=== PATIENT | female | born 1945 | race Caucasian/White ===

== ENCOUNTER 2024-08-08 09:22 | Observation (INO) | payer MEDICARE, OTHER, SELFPAY ==
[2024-08-08] VITALS (10 sets, daily range): BP systolic 111–154; BP diastolic 63–73; PULSE 62–79; RESP 16–22; TEMP 36.3–36.8; O2SAT 94–98; BMI 30.1
--- NOTE | ~2024-08-08 | XR_ITS ---
Clinical Indication: Weakness PA and lateral views of the chest: Comparison: 07/30/2024 Findings: The lungs are clear, without evidence of focal consolidation or pleural effusion. Cardiome diastinal silhouette is within normal limits. Bones and soft tissues are unremarkable. Impression: Normal chest. Reviewed, dictated and finalized at location . Impression: Normal chest.
--- NOTE | ~2024-08-08 | NM_ITS ---
EXAMINATION: NM sam stress w perfusion DATE: 08/09/2024 11:13 INDICATION: Chest pain TECHNIQUE: Rest images were obtained following intravenous administration of 12.2 mCi Tc99m tetrofosm in (Myoview). The patient was infused intravenously with Lexiscan (Regadenoson). Then, 33.3 mCi Tc99m tetrofosmin (Myoview) was administered intravenously, and stress images were obtained. Data was stephy nstructed into short axis and horizontal and vertical long axis SPECT images. Gated SPECT images were also obtained. COMPARISON: None. FINDINGS: There is no definite reversible or fixed perfusion abnormality to suggest ischemia or infar ction. There is normal left ventricular chamber size, wall motion and ejection fraction. Left ventr icular ejection fraction measures 67%. IMPRESSION: 1. Normal myocardial perfusion at rest and during stress. 2. Left ventricular ejection fraction measuring 67%. Reviewed, dictated and finalized at location A.
--- NOTE | ~2024-08-08 | CT_ITS ---
Clinical Indication: Chest pain, back pain, abdominal pain CT Scan of the Chest, Abdomen, and Pelvis with Contrast: Technique: Contiguous sections were acquired throughout the chest, abdomen, and pelvis after intraven ous administration of 100 cc of Omnipaque 350. Dose reduction technique was used on this scan by uti lizing automated exposure control and iterative reconstruction technique. The dose-length product (DL P) was 735.07 mGy-cm. Comparison: 07/30/2024 Findings: There is no evidence of any significant mediastinal, hilar or axillary lymphadenopathy. The mediastin al soft tissues appear normal. No aortic aneurysm or dissection. No pulmonary embolus seen. There is no evidence of pleural or pericardial effusion. The lungs are clear. No pulmonary nodules or infiltrates are noted. The liver, spleen, pancreas, gallbladder, adrenals and kidneys are within normal limits. There are at herosclerotic calcifications of the aorta. No aortic aneurysm or dissection. No lymphadenopathy. No bowel obstruction or bowel wall thickening. There is no evidence to suggest acute appendicitis. Urinary bladder is unremarkable. No pelvic mass seen. No ascites. Impression: No significant abnormalities seen. Reviewed, dictated and finalized at [facility]. Impression: No significant abnormalities seen.
--- NOTE | 2024-08-08 09:30 | ECG_ITS ---
Test Date: 2024-08-08 09:29:58 Measurements Intervals [place] Rate: 76 P: 14 MO: 150 QRS: -3 QRSD: 89 T: 33 QT: 392 QTc: 443 Interpretive Statements SINUS RHYTHM VOLTAGE CRITERIA FOR LVH BORDERLINE ECG Compared to ECG 07/30/2024 02:32:04 No significant changes Electronically Signed On 08-08-2024 12:34:17 CDT by Lasha Dumont D.O.
[2024-08-08 09:44] LABS: Basophils Percent Auto 0.1 % (0.2-1.2); Eosinophils Absolute Auto 0.1 K/mm3 (0-0.3); Eosinophils Percent Auto 1.9 % (0-4.4); Hematocrit 41.2 % (37.0-47.0); Hemoglobin 13.4 g/dL (12.0-15.0); Immature Granulocyte Absolute 0.03 K/mm3 (0.00-0.031); Immature Granulocyte Percent A 0.4 % (0-0.5); Lymphocytes Absolute Auto 2.01 K/mm3 (0.9-3.2); Lymphocytes Percent Auto 29.8 % (18.3-44.2); Mean Corpuscular HGB Conc 32.5 g/dl (32-36); Mean Corpuscular Hemoglobin 31.7 pg (26-34); Mean Corpuscular Volume 97.4 fl (80-100); Mean Platelet Volume 8.9 fl (7.4-10.4); Monocytes Absolute Auto 0.7 K/mm3 (0.1-0.6); Monocytes Percent Auto 10.5 % (2.6-8.5); Neutrophils Absolute Auto 3.9 K/mm3 (1.3-6.7); Neutrophils Percent Auto 57.3 % (45.5-73.1); Platelet Count Result 237 k/mm3 (150-375); Red Blood Count 4.23 M/mm3 (4.2-5.4); Red Cell Distribution Width 12.5 % (11.5-14.5); White Blood Count 6.8 K/mm3 (4.5-10.0)
[2024-08-08 09:57] LABS: Alanine Aminotransferase 26 U/L (6-35); Albumin Level 4.4 g/dL (3.5-5.1); Alkaline Phosphatase 46 U/L (38-126); Anion Gap 11 mmol/L (4-12); Aspartate Amino Transferase 27 U/L (14-36); Bilirubin,Total 0.4 mg/dL (0.2-1.3); Blood Urea Nitrogen 13 mg/dL (7-17); Calcium 9.6 mg/dL (8.4-10.2); Carbon Dioxide 23 mmol/L (22-30); Chloride 106 mmol/L (98-107); Estimated CRCL calculation 72 ml/min; Estimated Glomerular Filt Rate > 60; Glucose 120 mg/dL (65-110); Lipase 128 U/L (23-300); Potassium 3.9 mmol/L (3.4-5.0); Prothrombin Time 13.3 Seconds (11.1-14.7); Sodium 140 mmol/L (137-145); Total Protein 7.2 g/dL (6.3-8.2)
[2024-08-08 09:58] LABS: Partial Thromboplastin Time 24.4 Seconds (22.3-36.8)
--- NOTE | 2024-08-08 10:05 | ED_ITS ---
HPI - Back Pain/Injury General Chief Complaint: Back Pain/Injury Stated Complaint: back Time Seen by Provider: 08/08/24 10:03 Source: patient and EMS Mode of arrival: EMS History of Present Illness HPI Narrative: 78 years old white female, history of dementia, currently oriented to her name only complaining of chest pain, med back pain, left lower quadrant pain noticed 2 hours prior to arrival. Her son is a physician at the bedside.. Patient denies any fever, chills, nausea, vomiting, shortness of breath or recent trauma. History of diabetes hyperlipidemia deep vein thrombosis and acid reflux. Patient on aspirin Related Data Allergies Allergy/AdvReac Type Severity Reaction Status Date / Time No Known Allergies Allergy Verified 07/30/24 02:38 Review of Systems 2 Review of Systems: ROS unobtainable: Yes unobtainable due to mental status Exam 2 Narrative: General appearance: Well-developed, well-nourished Skin: Normal color Head: Normocephalic, nontraumatic Eyes: Clear conjunctiva ENT: Oropharynx normal, ears normal, nose normal Neck: Supple, nontender Chest and respiratory: Airway patent, no respiratory distress, no accessory muscle use Heart: Regular rate/rhythm Abdomen: Soft, left lower quadrant tenderness, no organomegaly, quiet bowel sounds Vascular: Normal peripheral pulses, normal capillary refill. Musculoskeletal: Moderate tenderness thoracic spine with palpation, no bruises, no swelling, no rash Neurologic: Alert and oriented ?3, [employer] is normal as tested, no gross motor deficit Course Vital Signs Vital signs: Vital Signs Temperature 36.5 C 08/08/24 09:24 Pulse Rate 79 08/08/24 09:24 Respiratory Rate 22 H 08/08/24 09:24 Blood Pressure 111/63 08/08/24 09:24 Pulse Oximetry 97 08/08/24 09:24 Oxygen Delivery Room Air 08/08/24 09:24 Temperature 36.5 C 08/08/24 09:24 Pulse Rate 76 08/08/24 10:23 Respiratory Rate 20 08/08/24 10:23 Blood Pressure 117/72 08/08/24 10:23 Pulse Oximetry 94 08/08/24 10:23 Oxygen Delivery Room Air 08/08/24 09:24 MDM - Back Pain/Injury MDM Narrative Medical decision making narrative: Patient came with chest pain and mid upper back pain Vital signs are stable Physical examination showing tenderness mid thoracic spine and left lower quadrant. Differential diagnosis include coronary artery disease, pulmonary embolism, stress related symptoms, musculoskeletal, diverticulitis, urinary tract infection, constipation, less likely aortic dissection/aneurysm. Blood workup today includes CBC, CMP, troponin, lipase, PT PTT showed no significant abnormality Chest x-ray showed no acute abnormality EKG showed normal sinus at 76 beats per minute, no acute abnormality CTA chest, abdomen and pelvis showed no significant abnormality Admit to hospitalist for chest pain. Differential Diagnosis Differential diagnosis: Likely other (As above) Medical Records Attestation: I reviewed the patient's medical records. Lab Data Attestation: I reviewed the patient's lab results. 08/08/24 09:37 08/08/24 09:37 Labs: Lab Results 08/08/24 Range/Units 09:37 WBC 6.8 (4.5-10.0) K/mm3 RBC 4.23 (4.2-5.4) M/mm3 Hgb 13.4 (12.0-15.0) g/dL Hct 41.2 (37.0-47.0) % MCV 97.4 (80-100) fl MCH 31.7 (26-34) pg MCHC 32.5 (32-36) g/dl RDW 12.5 (11.5-14.5) % Plt Count 237 (150-375) k/mm3 MPV 8.9 (7.4-10.4) fl Immature Gran % (Auto) 0.4 (0-0.5) % Neut % (Auto) 57.3 (45.5-73.1) % Lymph % (Auto) 29.8 (18.3-44.2) % Hernando % (Auto) 10.5 H (2.6-8.5) % Eos % (Auto) 1.9 (0-4.4) % Baso % (Auto) 0.1 L (0.2-1.2) % Lymph # (Auto) 2.01 (0.9-3.2) K/mm3 Hernando # (Auto) 0.7 H (0.1-0.6) K/mm3 Eos # (Auto) 0.1 (0-0.3) K/mm3 Baso # (Auto) 0.0 (0.0-0.1) K/mm3 Abs Immat Gran (auto) 0.03 (0.00-0.031) K/mm3 Absolute Neuts (auto) 3.9 (1.3-6.7) K/mm3 Absolute Nucleated RBC 0.000 (0.0-0.012) K/mm3 Nucleated RBC % 0.0 (0.0-0.2) % PT 13.3 (11.1-14.7) Seconds INR 1.0 APTT 24.4 (22.3-36.8) Seconds Sodium 140 (137-145) mmol/L Potassium 3.9 (3.4-5.0) mmol/L Chloride 106 (98-107) mmol/L Carbon Dioxide 23 (22-30) mmol/L Anion Gap 11 (4-12) mmol/L BUN 13 (7-17) mg/dL Creatinine 0.56 L (0.7-1.0) mg/dL Estim Creat Clear Calc 72 ml/min Estimated GFR > 60 (59 - ) Glucose 120 H (65-110) mg/dL Calcium 9.6 (8.4-10.2) mg/dL Total Bilirubin 0.4 (0.2-1.3) mg/dL AST 27 (14-36) U/L ALT 26 (6-35) U/L Alkaline Phosphatase 46 (38-126) U/L Troponin I < 0.012 (0.000-0.034) ng/mL Total Protein 7.2 (6.3-8.2) g/dL Albumin 4.4 (3.5-5.1) g/dL Lipase 128 (23-300) U/L Imaging Data Radiologist's impression: Impressions Chest X-Ray 08/08/24 09:55 Impression: Normal chest. Chest/Abdomen/Pelvis CTA 08/08/24 11:30 Impression: No significant abnormalities seen. Critical Care Time Critical Care Time Critical Care Time: No Discharge Plan Discharge Clinical Impression: Chest pain, Back pain Patient Disposition: Still a Patient Condition: Stable Additional Instructions: Admit to hospitalist Patient Language: Vincentian Follow-up/Referrals: Esther Jones MD [Primary Care Provider] - Quality HEART score for chest pain patients History: moderately suspicious ECG: non specific repolarization disturbance/LBTB/PM Age: > or = to 65 years Risk factors: > or = to 3 risk factors of atherosclerotic disease Troponin: < or = to 1x normal limit Heart score: 6
[2024-08-08 10:08] LABS: Troponin I < 0.012 ng/mL (0.000-0.034)
--- NOTE | 2024-08-08 12:20 | ECG_ITS ---
Test Date: 2024-08-08 13:04:16 Measurements Intervals [place] Rate: 70 P: 44 MI: 181 QRS: -10 QRSD: 84 T: 24 QT: 403 QTc: 437 Interpretive Statements SINUS RHYTHM LEFT VENTRICULAR HYPERTROPHY MINIMAL Q WAVES- HIGH LATERAL LEADS BASELINE ARTIFACT- I, II, AVR BORDERLINE ECG Compared to ECG 08/08/2024 09:29:58 No significant changes Electronically Signed On 08-08-2024 15:38:31 CDT by Lasha Dumont D.O.
[2024-08-08] MEDS: ASPIRIN 81 MG CHEWABLE TABLET 324 MG PO (12:35)
[2024-08-08 12:54] LABS: Troponin I < 0.012 ng/mL (0.000-0.034)
--- NOTE | 2024-08-08 14:59 | PM.IMHP ---
H&P: HPI History of Present Illness Date/Time: 08/08/24 14:59 Chief Complaint: Chest pain, back pain and abdominal pain Narrative: ER-HPI Narrative: 78 years old white female, history of dementia, currently oriented to her name only complaining of chest pain, med back pain, left lower quadrant pain noticed 2 hours prior to arrival. Her son is a physician at the bedside.. Patient denies any fever, chills, nausea, vomiting, shortness of breath or recent trauma. History of diabetes hyperlipidemia deep vein thrombosis and acid reflux. Patient on aspirin 78 y/o female a resident of [place] with history of dementia and poor historian was sent to ER for further evaluation of her chest, back and abdominal pain, CT scan of chest, abdomen, and pelvics with contrast is essentially normal without any acut finding. her 2 sets of cardiac enzymes are normal as well her EKG without any acute changes, Patient had a similar presentation recently on 07/30/24 and her work up was normal and patient was discharged back to the OR, today I spoke with her son who is a ER physician and discuss case, plan is to apply Lidoderm patches to help her with back pain, and to further evaluate her chest pain, will do sam scan to r/o any ACS and cardiac echo to check for any cardiac structural abnormality. Review of Systems Review of Systems: ROS unobtainable: Yes unobtainable due to mental status PMFSH Social History Social History Smoking status: Never smoker Meds Home Medications and Allergies Allergies Allergy/AdvReac Type Severity Reaction Status Date / Time No Known Allergies Allergy Verified 07/30/24 02:38 Vital Signs Vital Signs - 24 hr 08/08/24 09:24 08/08/24 10:23 08/08/24 12:25 Temperature 36.5 C Pulse Rate 79 76 63 Respiratory Rate 22 H 20 18 Blood Pressure 111/63 117/72 123/63 Pulse Oximetry 97 94 96 Oxygen Delivery Room Air 08/08/24 14:06 Temperature 36.5 C Pulse Rate 69 Respiratory Rate 20 Blood Pressure 154/67 H Pulse Oximetry 98 Oxygen Delivery Exam Narrative: Patient is comfortable, NAD HEENT: eyes are clear and none icteric LUNGS:CTA HEART: RR S1S2 ABD: BS+, Soft and diffusely tender Lower extremities: no edema SKIN: nonjaundiced Neuro: grossly intact. H&P: Results Labs Labs: Short CBC 08/08/24 Range/Units 09:37 WBC 6.8 (4.5-10.0) K/mm3 Hgb 13.4 (12.0-15.0) g/dL Hct 41.2 (37.0-47.0) % Plt Count 237 (150-375) k/mm3 BMP 08/08/24 09:37 Sodium 140 Potassium 3.9 Chloride 106 Carbon Dioxide 23 BUN 13 Creatinine 0.56 L Glucose 120 H Calcium 9.6 Cardiac Enzymes 08/08/24 08/08/24 Range/Units 09:37 12:27 Troponin I < 0.012 < 0.012 (0.000-0.034) ng/mL Liver Function 08/08/24 Range/Units 09:37 Total Bilirubin 0.4 (0.2-1.3) mg/dL AST 27 (14-36) U/L ALT 26 (6-35) U/L Alkaline Phosphatase 46 (38-126) U/L Albumin 4.4 (3.5-5.1) g/dL Assessment and Plan Assessment and plan (1) Chest pain: Code(s): R07.9 - Chest pain, unspecified Status: Acute (2) Back pain: Code(s): M54.9 - Dorsalgia, unspecified Status: Acute (3) Abdominal pain: Code(s): R10.9 - Unspecified abdominal pain Status: Acute Plan 78 y/o female a resident of [place] with history of dementia and poor historian was sent to ER for further evaluation of her chest, back and abdominal pain, CT scan of chest, abdomen, and pelvics with contrast is essentially normal without any acut finding. her 2 sets of cardiac enzymes are normal as well her EKG without any acute changes, Patient had a similar presentation recently on 07/30/24 and her work up was normal and patient was discharged back to the OR, today I spoke with her son who is a ER physician and discuss case, plan is to apply Lidoderm patches to help her with back pain, and to further evaluate her chest pain, will do sam scan to r/o any ACS and cardiac echo to check for any cardiac structural abnormality. Quality VTE Prophylaxis VTE prophylaxis: mechanical ordered Hospitalist MIPS Advance Care Plan I have confirmed that the patient's Advanced Care Plan is present, code status is documented, or surrogate decision maker is listed in patient medical record.: Yes Medication Reconciliation The patient is not eligible for med reconciliation; the patient is in a emergent medical situation where delaying treatment would jeopardize the patients health.: Yes
[2024-08-08 15:57] LABS: Troponin I < 0.012 ng/mL (0.000-0.034)
[2024-08-08] MEDS: DONEPEZIL HCL 5 MG TABLET PO (23:10)
[2024-08-08] MEDS: traZODone HCL 25 MG TABLET PO (23:10)
[2024-08-08] MEDS: ATORVASTATIN 20 MG TABLET PO (23:11)
[2024-08-08] MEDS: DORZOLAMIDE/TIMOLOL OPHTH SOL 10 ML BOTTLE 1 DROP EACH EYE (23:12)
[2024-08-08] MEDS: LATANOPROST 0.005% OP SOLN 2.5 ML BTL 1 DROP EACH EYE (23:12)
[2024-08-08 23:40] LABS: Glucose Point of Care 113 mg/dl (65-105)
[2024-08-09] VITALS (10 sets, daily range): BP systolic 123–153; BP diastolic 62–73; PULSE 60–86; RESP 16–18; TEMP 36.6–36.8; O2SAT 94–100
--- NOTE | 2024-08-09 | ECHO_ITS ---
Patient Info Name: Gladys Das Age: 78 years : 1945 Gender: Female Ht: 64 in Wt: 175 lbs BSA: 1.92 m2 HR: 76 bpm BP: 138 / 62 mmHg Technical Quality: Good Exam Date: 08/09/2024 10:51 AM Patient Status: I Admit Date: 08/08/2024 Exam Type: CA echo doppler color flow Complete two-dimensional, color flow and Doppler transthoracic echocardiogram is performed. Staff Referring Physician: Lida Martinez MD Cable Worker Helper: Mari Weiss Attending Provider: Lida Martinez MD Summary 1. Complete two-dimensional, color flow and Doppler transthoracic echocardiogram is performed. 2. Left ventricular chamber dimension is normal. 3. Left ventricular systolic function is normal, estimated at 60-65. 4. The left ventricular diastolic function is grade I diastolic dysfunction. 5. E/e' 8 is minimally elevated. 6. There is mild aortic valve sclerosis. 7. There is mild aortic valve regurgitation. 8. The mitral valve has a moderately calcified annulus. 9. There is mild mitral valve regurgitation. 10. There is mild to moderate tricuspid valve regurgitation. 11. Mild pulmonary hypertension, estimated pulmonary arterial systolic pressure is 42 mmHg. Left Ventricle E/e' 8 is minimally elevated. Left ventricular chamber dimension is normal. Left ventricular systolic function is normal, estimated at 60-65. The left ventricular diastolic function is grade I diastolic dysfunction. Right Ventricle Right ventricular chamber dimension is normal. Right ventricular systolic function is normal and with normal TAPSE 2.3 cm. Left Atria Left atrial chamber dimension is normal. Right Atria Right atrial chamber dimension is normal. Aortic Valve The aortic valve is trileaflet. There is mild aortic valve sclerosis. There is no aortic valve stenosis. There is mild aortic valve regurgitation. Pulmonic Valve There is no pulmonic regurgitation. Mitral Valve The mitral valve has a moderately calcified annulus. There is no mitral valve stenosis. There is mild mitral valve regurgitation. Tricuspid Valve There is mild to moderate tricuspid valve regurgitation. Mild pulmonary hypertension, estimated pulmonary arterial systolic pressure is 42 mmHg. Pericardium/Pleural There is no pericardial effusion. Inferior Vena Cava Normal inferior vena cava with >50% collapse upon inspiration consistent with normal right atrial pressure, 5 mmHg. Aorta The aortic root size at the sinus of Valsalva is normal. Left Ventricular Outflow Tract Name Value Normal LVOT 2D LVOT Diameter 1.9 cm LVOT Doppler LVOT Peak Velocity 82 cm/s LVOT Peak Gradient 3 mmHg LVOT Mean Gradient 1 mmHg LVOT VTI 19 cm LVOT VTI/AV VTI Ratio 0.8 LVOT Stroke Volume 54 ml LVOT CO 3.0 l/min LVOT CI 1.6 l/min/m2 Pulmonic Valve Name Value Normal PV Doppler PV Peak Velocity 84 cm/s PV Peak Gradient 3 mmHg PV Regurgitation Doppler MD Peak End Diastolic Velocity 87 cm/s Mitral Valve Name Value Normal MV Diastolic Function MV E Peak Velocity 68 cm/s MV A Peak Velocity 85 cm/s MV E/A 0.8 MV Decel Time (PW) 221 ms MV Annular TDI MV E/e' (Septal) 7.9 MV E/e' (Lateral) 10.2 MV E/e' (Average) 9.0 Tricuspid Valve Name Value Normal TV Regurgitation Doppler TR Peak Velocity 304 cm/s TR Peak Gradient 26 mmHg Estimated PAP/RSVP RA Pressure 5 mmHg <=5 PA Systolic Pressure 42 mmHg <36 RV Systolic Pressure 42 mmHg <36 TV Annular TDI TV Lateral Diane s' Velocity 9.0 cm/s >=9.5 Aortic Valve Name Value Normal AV Doppler AV Peak Velocity 105 cm/s AV Peak Gradient 4 mmHg AV Mean Gradient 2 mmHg AV VTI 24 cm AV Area (Cont Eq VTI) 2.2 cm2 >=3.0 AV Area (Cont Eq Albert) 2.2 cm2 AV DI (Albert) 0.79 AV Regurgitation 2D LVOT Area 2.8 cm2 Ventricles Name Value Normal LV Dimensions 2D/MM IVS Diastolic Thickness (2D) 0.9 cm 0.6-1.0 LVID Diastole (2D) 4.3 cm 3.8-5.2 LVIW Diastolic Thickness (2D) 0.9 cm 0.6-0.9 LVID Systole (2D) 3.0 cm 2.2-3.5 LVOT Diameter 1.9 cm LV Mass (2D Cubed) 128.59 g 67.00-162.00 LV Mass Index (2D Cubed) 67 g/m2 43-95 Relative Wall Thickness (2D) 0.41 <=0.42 LV Fractional Shortening/Ejection Fraction 2D/MM LV Fractional Shortening (2D) 30 % 27-45 LV EF (2D Teichholz) 58 % LV Diastolic Volume (4C MOD) 64 ml LV EF (4C MOD) 62 % LV Diastolic Volume (2C MOD) 56 ml LV EF (2C MOD) 57 % LV Diastolic Volume (BP MOD) 60 ml 46-106 LV Diastolic Volume Index (BP MOD) 31 ml/m2 29-61 LV Systolic Volume (BP MOD) 26 ml 14-42 LV Systolic Volume Index (BP MOD) 13 ml/m2 8-24 LV EF (BP MOD) 57 % 54-74 LV Diastolic Length (4C) 6.8 cm LV Systolic Length (4C) 5.2 cm LV Stroke Volume (4C MOD) 40 ml Atria Name Value Normal LA Dimensions LA Volume (4C A-L) 34 ml LA Volume (BP A-L) 40 ml RA Dimensions RA Systolic Major [place] Length (4C) 4.0 cm 2.2-2.8 RA Area (4C) 12.9 cm2 <=18.0 Report Signatures
--- NOTE | 2024-08-09 | EST_ITS ---
Patient Info Name: Gladys Das Age: 78 years : 1945 Gender: Female Ht: 64 in Wt: 175 lbs BSA: 1.92 m2 HR: 61 bpm BP: 128 / 77 mmHg Exam Date: 08/09/2024 6:20 AM Patient Status: I Admit Date: 08/08/2024 Exam Type: CA stress sam w NM A regadenoson stress test was performed. Staff Referring Physician: Lida Martinez MD Attending Provider: Lida Martinez MD Exercise Technologist: Carito Arciniega Exercise Physician: Lasha Dumont DO Summary 1. 1. Negative lexiscan stress test for ischemic ST changes by ECG criteria. 2. 2. Stable hemodynamics throughout the test. 3. 3. Nuclear scan to follow and will be reported separately. Please correlate with it. 4. 4. Patient informed of the above results. Protocol: Lexiscan Stress ECG Details Stage: REST Duration (min): 1 min : 29 sec HR (bpm): 61 SBP (mmHg): 128 DBP (mmHg): 77 Stage: REST Duration (min): 8 min : 18 sec HR (bpm): 64 SBP (mmHg): 128 DBP (mmHg): 77 Stage: STAGE 1 Duration (min): 1 min : 0 sec HR (bpm): 80 SBP (mmHg): 129 DBP (mmHg): 87 Stage: RECOVERY Duration (min): 1 min : 0 sec HR (bpm): 106 SBP (mmHg): 129 DBP (mmHg): 87 Stage: RECOVERY Duration (min): 2 min : 0 sec HR (bpm): 100 SBP (mmHg): 129 DBP (mmHg): 87 Stage: RECOVERY Duration (min): 3 min : 0 sec HR (bpm): 97 SBP (mmHg): 151 DBP (mmHg): 75 Stage: RECOVERY Duration (min): 3 min : 15 sec HR (bpm): 99 SBP (mmHg): 151 DBP (mmHg): 75 Rest HR: 64 bpm Peak HR: 107 bpm Rest Sys BP: 128 mmHg Peak Sys BP: 151 mmHg Max Pred HR: 141 bpm % Max Pred HR: 76 % Target HR: 120 bpm Max RPP: 16,157 bpm*mmHg Termination Reason: Completed protocol Cardiac Symptoms: Stomach discomfort Total Time: 1 min : 0 sec Rest Polo BP: 77 mmHg Peak [place] BP: 75 mmHg Total Dose: 0.4 mg Resting ECG Sinus rhythm, early precordial R/S transition. Stress ECG No ST changes. Arrhythmias None. Report Signatures
[2024-08-09 04:46] LABS: Chloride 105 mmol/L (98-107)
[2024-08-09 04:47] LABS: Anion Gap 8 mmol/L (4-12); Blood Urea Nitrogen 9 mg/dL (7-17); Calcium 9.1 mg/dL (8.4-10.2); Carbon Dioxide 27 mmol/L (22-30); Estimated CRCL calculation 68 ml/min; Estimated Glomerular Filt Rate > 60; Glucose 116 mg/dL (65-110); Potassium 3.3 mmol/L (3.4-5.0); Sodium 140 mmol/L (137-145)
[2024-08-09 09:22] LABS: Glucose Point of Care 105 mg/dl (65-105)
[2024-08-09] MEDS: NIFEdipine 30 MG TAB.ER.24 PO (10:24)
[2024-08-09] MEDS: ASPIRIN 81 MG CHEWABLE TABLET PO (10:24)
[2024-08-09] MEDS: PANTOPRAZOLE 40 MG TABLET PO (10:24)
[2024-08-09] MEDS: FERROUS SULFATE 325 MG TABLET DR PO (10:24)
[2024-08-09] MEDS: DORZOLAMIDE/TIMOLOL OPHTH SOL 10 ML BOTTLE 1 DROP EACH EYE (10:25)
[2024-08-09 11:12] LABS: Hematocrit 37.9 % (37.0-47.0); Hemoglobin 12.3 g/dL (12.0-15.0); Mean Corpuscular HGB Conc 32.5 g/dl (32-36); Mean Corpuscular Hemoglobin 32.2 pg (26-34); Mean Corpuscular Volume 99.2 fl (80-100); Mean Platelet Volume 9.5 fl (7.4-10.4); Platelet Count Result 243 k/mm3 (150-375); Red Blood Count 3.82 M/mm3 (4.2-5.4); Red Cell Distribution Width 12.8 % (11.5-14.5); White Blood Count 7.2 K/mm3 (4.5-10.0)
[2024-08-09 11:12] LABS: Glucose Point of Care 135 mg/dl (65-105)
[2024-08-09] MEDS: POTASSIUM CHLORIDE 20 MEQ PACKET (FOR LIQUID) 40 MEQ PO (11:56)
--- NOTE | 2024-08-09 15:37 | P.DS_ITS ---
DS: Admitting Diagnosis Discharge Date 08/09/24 Admitting Diagnosis Chest pain, back pain and abdominal pain DS: Discharge Diagnosis Discharge Diagnosis (1) Chest pain: Code(s): R07.9 - Chest pain, unspecified Status: Acute (2) Back pain: Code(s): M54.9 - Dorsalgia, unspecified Status: Acute (3) Abdominal pain: Code(s): R10.9 - Unspecified abdominal pain Status: Acute Plan 78 y/o female a resident of [facility] with history of dementia and poor historian was sent to ER for further evaluation of her chest, back and abdominal pain, CT scan of chest, abdomen, and pelvics with contrast is essentially normal without any acut finding. her 2 sets of cardiac enzymes are normal as well her EKG without any acute changes, Patient had a similar presentation recently on 07/30/24 and her work up was normal and patient was discharged back to the [facility], today I spoke with her son who is a ER physician and discuss case, plan is to apply Lidoderm patches to help her with back pain, and to further evaluate her chest pain, will do sam scan to r/o any ACS and cardiac echo to check for any cardiac structural abnormality. DS: Summary Hospital Course Hospital Course: 78 y/o female a resident of [facility] with history of dementia and poor historian was sent to ER for further evaluation of her chest, back and abdominal pain, CT scan of chest, abdomen, and pelvics with contrast is essentially normal without any acut finding. her 2 sets of cardiac enzymes are normal as well her EKG without any acute changes, Patient had a similar presentation recently on 07/30/24 and her work up was normal and patient was discharged back to the [facility], today I spoke with her son who is a ER physician and discuss case, plan is to apply Lidoderm patches to help her with back pain, and to further evaluate her chest pain, will do sam scan to r/o any ACS and cardiac echo to check for any cardiac structural abnormality. To further evaluate patient chest pain, patient had NM stress test which was normal without any ischemia and had cardiac echo which showed normal LV function, patient is clinically stable, will discharge patient today. Time Spent with Patient Time attestation: Total time spent providing and/or coordinating discharge services: Exam Narrative: Patient is comfortable, NAD HEENT: eyes are clear and none icteric LUNGS:CTA HEART: RR S1S2 ABD: BS+, Soft and diffusely tender Lower extremities: no edema SKIN: nonjaundiced Neuro: grossly intact. DS: Data Data Completed and Pending Labs on day of discharge: Labs from last 24 hours 08/09/24 08/09/24 08/09/24 11:00 07:40 03:58 WBC 7.2 RBC 3.82 L Hgb 12.3 Hct 37.9 MCV 99.2 MCH 32.2 MCHC 32.5 RDW 12.8 Plt Count 243 MPV 9.5 Sodium 140 Potassium 3.3 L Chloride 105 Carbon Dioxide 27 Anion Gap 8 BUN 9 Creatinine 0.58 L Estim Creat Clear Calc 68 Estimated GFR > 60 Glucose 116 H POC Capillary Glucose 135 H 105 Calcium 9.1 Troponin I 08/08/24 08/08/24 23:20 15:31 WBC RBC Hgb Hct MCV MCH MCHC RDW Plt Count MPV Sodium Potassium Chloride Carbon Dioxide Anion Gap BUN Creatinine Estim Creat Clear Calc Estimated GFR Glucose POC Capillary Glucose 113 H Calcium Troponin I < 0.012 Discharge Plan Discharge Attending physician on discharge: Lida Martinez Consulting providers: Lasha Dumont; Gavin Rico; Ji Ocampo Discharging Clinician: Lida Martinez Patient Disposition: [facility] Nursing Home/Asst Living Activity: as tolerated Diet: heart healthy Discharge Instructions: patient to follow up with her primary care provider as soon as possible. Patient Instructions: Chest Pain (DC) Patient Language: Swedish Stand Alone Forms: General Discharge Information Follow-up/Referrals: Esther Jones MD [Primary Care Provider] - Discharge Medications: Continued atorvastatin 20 mg tablet 20 mg PO QHS donepezil 5 mg tablet 5 mg PO QHS ergocalciferol (vitamin D2) 1,250 mcg (50,000 unit) capsule 1,250 mcg PO WEEKLY ibuprofen 600 mg tablet 600 mg PO TID PRN (Reason: pain) insulin glargine [Lantus U-100 Insulin] 100 unit/mL solution 17 unit SUBCUT QPM metformin 500 mg tablet extended release 24 hr 500 mg PO BID nifedipine 30 mg tablet extended release 24hr 30 mg PO DAILY pantoprazole 40 mg tablet,delayed release (DR/EC) 40 mg PO DAILY trazodone 50 mg tablet 25 mg PO QHS acetaminophen 500 mg capsule 1,000 mg PO Q6H PRN (Reason: pain) dorzolamide-timolol 22.3-6.8 mg/mL drops 1 drp EACH EYE BID aspirin 81 mg tablet 81 mg PO DAILY denosumab 60 mg/mL syringe 60 mg subcut [id number] ferrous sulfate [Feosol] 325 mg (65 mg iron) tablet 325 mg PO DAILY Lumigan 0.01 % drops 1 drp EACH EYE QHS ondansetron 4 mg tablet,disintegrating 4 mg PO Q8H PRN (Reason: nausea and vomiting) Rhopressa 0.02 % drops 1 drp LEFT EYE QPM Date of admission: 08/08/24 12:22 Primary Care Provider: Esther Jones Admitting Provider: Lida Martinez Attending physician on admission: Lida Martinez Condition: Stable
--- NOTE | 2024-08-09 15:50 | PCPTNOTE ---
Attempted PT evaluation. Per hospitalist, hold on therapy until the completion of testing. Will follow.
--- NOTE | 2024-08-09 15:51 | PCOTNOTE ---
Per Dr. Martinez, he would like cardiac work up to be completed and to review findings prior to clearing pt to work with therapy. Pt remains on bedrest orders as of 15:52. Will continue to follow.
[2024-08-09 17:17] LABS: Glucose Point of Care 209 mg/dl (65-105)
[2024-08-09] MEDS: INSULIN ASPART (*BKC) 100 UNITS/ML SUB-Q (17:22)
[2024-08-09 18:33] LABS: Magnesium 1.9 mg/dL (1.6-2.3)
== END 2024-08-09 19:15 ==
LOC: ANHED 11:35 → ANHIMU 13:13
PROVIDERS: Emergency Medicine; Admitting Provider Family Medicine; Emergency Provider Emergency Medicine; PCP Family Medicine; Visit Provider Family Medicine
DX: R07.9 Chest pain, unspecified (principal); M54.9 Dorsalgia, unspecified; R10.32 Left lower quadrant pain; F03.90 Unspecified dementia, unspecified severity, without behavioral disturbance, psychotic disturbance, mood disturbance, and anxiety; Z79.82 Long term (current) use of aspirin; Z79.84 Long term (current) use of oral hypoglycemic drugs; Z79.899 Other long term (current) drug therapy
CPT/HCPCS: 36415; 71046; 71275; 74174; 78452; 80048; 80053; 82948; 83690; 83735; 84484; 85025; 85027; 85610; 85730; 93005; 93017; 93306; 96374; 99285; A9270; A9502; G0378; J1815; J2785; Q9967